=== PATIENT | male | born 1960 | race Two or more races ===

== ENCOUNTER 2022-05-17 10:46 | Day surgery (SDC) | payer OTHER ==
[~2022-05-17 10:46] MED LIST: CHILDREN'S ASPI81 MG PO; GLIPIZIDE XL10 MG PO; LOTREL 10-40 M1 EACH PO; PANTOPRAZOLE SO40 MG PO; SEGLUROMET 7.51 EAC1 PO; SIMVASTATIN40 MG PO; TOPROL XL100 M1 PO
[2022-05-17] MEDS ORDERED: PERCOCET 5-3251 EACH PO (18:31)
== END 2022-05-17 22:00 | disposition home or self-care (01) ==
LOC: CIR.AMB 10:46
PROVIDERS: ATTEND Surgery
DX: N52.01 Erectile dysfunction due to arterial insufficiency (principal); Z20.822 Contact with and (suspected) exposure to COVID-19; I25.2 Old myocardial infarction; I10 Essential (primary) hypertension; Z87.891 Personal history of nicotine dependence; E11.9 Type 2 diabetes mellitus without complications; Z79.84 Long term (current) use of oral hypoglycemic drugs
CPT/HCPCS: 54405; C1813

== ENCOUNTER 2022-10-13 05:10 | Day surgery (SDC) | payer OTHER ==
[~2022-10-13 05:10] MED LIST changes: +NORVASC10 MG PO; +PERCOCET 5-3251 EACH PO; +VASOTEC20 M1
== END 2022-10-13 11:45 | disposition home or self-care (01) ==
LOC: CIR.AMB 05:10
PROVIDERS: ATTEND Specialist
DX: K42.9 Umbilical hernia without obstruction or gangrene (principal); Z20.822 Contact with and (suspected) exposure to COVID-19; I10 Essential (primary) hypertension; Z87.891 Personal history of nicotine dependence; E11.40 Type 2 diabetes mellitus with diabetic neuropathy, unspecified; Z79.84 Long term (current) use of oral hypoglycemic drugs; K75.9 Inflammatory liver disease, unspecified

== ENCOUNTER 2023-09-04 09:10 | Outpatient (CLI) | payer OTHER | END 2023-09-04 09:17 | disposition home or self-care (01) | LOC: RAD 09:10 | PROVIDERS: ATTEND Surgery | DX: Z01.810 Encounter for preprocedural cardiovascular examination (principal) ==

== ENCOUNTER 2024-05-15 08:37 | Outpatient (CLI) | payer OTHER | END 2024-05-15 08:56 | disposition home or self-care (01) | LOC: RAD 08:37 | PROVIDERS: ATTEND Internal Medicine | DX: M54.50 Low back pain, unspecified (principal) ==